=== PATIENT | female | born 1940 | race Caucasian/White ===

== ENCOUNTER → 2017-03-09 | Outpatient (CLI) | payer MEDICARE ==
[2017-03-09 11:35] LABS: BASO % 0.3 % (0.0-1.0); EOS # 0.1 10*3/uL (0.0-0.4); EOS % 2.2 % (1.0-4.0); HEMATOCRIT 34.3 % (37.0-47.0); HEMOGLOBIN 11.2 g/dl (12.0-16.0); LYMPH # 0.5 10*3/uL (1.3-4.4); LYMPH % 7.5 % (27.0-41.0); MEAN CELL VOLUME 92.5 fl (81.0-99.0); MEAN CORPUSCULAR HGB 30.2 pg (27.0-31.0); MEAN CORPUSCULAR HGB CONC 32.7 g/dl (33.0-37.0); MEAN PLATELET VOLUME 9.4 fl (9.6-12.3); MONO # 0.7 10*3/uL (0.1-1.0); NEUT % 78.7 % (47.0-73.0); PLATELET COUNT AUTOMATED 225 10*3/uL (130-400); RED BLOOD COUNT 3.71 10*6/uL (4.10-5.10); RED CELL DISTRI WIDTH 12.8 % (0-14.5); WHITE BLOOD COUNT 6.4 10*3/uL (4.8-10.8)
[2017-03-09 12:09] LABS: ALBUMIN 2.7 gm/dl (3.1-4.5); ALKALINE PHOSPHATASE 82 U/L (45-117); BILIRUBIN, TOTAL 0.2 mg/dl (0.2-1.0); BUN 16 mg/dl (7-24); CARBON DIOXIDE 25 mmol/L (21-32); CHLORIDE 104 mmol/L (98-107); EST GLOM FILT AFRICAN AMERICAN > 60 ml/min; GLUCOSE 218 mg/dL (65-99); MAGNESIUM 1.6 mg/dL (1.5-2.1); PHOSPHOROUS 3.4 mg/dL (2.5-4.9); POTASSIUM 4.3 mmol/L (3.5-5.1); SGOT/AST 11 IU/L (3-35); SGPT/ALT 10 U/L (12-78); SODIUM 138 mmol/L (136-145); TOTAL PROTEIN 6.7 gm/dL (6.4-8.2)
== END | disposition home or self-care (01) ==
LOC: LAB 03:56 → EDSTATUS 11:30 → SDC 11:30
PROVIDERS: Internal Medicine Hematology & Oncology
DX: Z45.2 Encounter for adjustment and management of vascular access device (principal); C67.9 Malignant neoplasm of bladder, unspecified

== ENCOUNTER → 2017-03-15 | Outpatient (CLI) | payer MEDICARE ==
[2017-03-15 12:32] LABS: HEMATOCRIT 35.9 % (37.0-47.0); HEMOGLOBIN 11.6 g/dl (12.0-16.0); MEAN CELL VOLUME 91.6 fl (81.0-99.0); MEAN CORPUSCULAR HGB 29.6 pg (27.0-31.0); MEAN CORPUSCULAR HGB CONC 32.3 g/dl (33.0-37.0); PLATELET COUNT AUTOMATED 175 10*3/uL (130-400); RED BLOOD COUNT 3.92 10*6/uL (4.10-5.10); RED CELL DISTRI WIDTH 12.8 % (0-14.5); WHITE BLOOD COUNT 6.5 10*3/uL (4.8-10.8)
[2017-03-15 13:02] LABS: BASOPHIL # 0.1 10*3/uL (0-0.1); BASOPHILS 2 % (0-1); LYMPHOCYTE # 0.3 10*3/uL (1.3-4.4); MONOCYTE # 0.6 10*3/uL (0.1-1.0); NEUTROPHIL # 5.5 10*3/uL (2.3-7.9); NEUTROPHILS 84 % (47-73); PLATELET SUFFICIENCY NORMAL (NORMAL); TOTAL CELLS COUNTED 100 #CELLS
[2017-03-15 13:11] LABS: ALBUMIN 2.8 gm/dl (3.1-4.5); BUN 15 mg/dl (7-24); CARBON DIOXIDE 25 mmol/L (21-32); CHLORIDE 104 mmol/L (98-107); GLUCOSE 126 mg/dL (65-99); POTASSIUM 4.2 mmol/L (3.5-5.1); SODIUM 138 mmol/L (136-145)
[2017-03-15 13:16] LABS: ALKALINE PHOSPHATASE 74 U/L (45-117); BILIRUBIN, TOTAL 0.2 mg/dl (0.2-1.0); EST GLOM FILT AFRICAN AMERICAN > 60 ml/min; PHOSPHOROUS 3.3 mg/dL (2.5-4.9); SGOT/AST 9 IU/L (3-35); SGPT/ALT 9 U/L (12-78); TOTAL PROTEIN 6.7 gm/dL (6.4-8.2)
== END | disposition home or self-care (01) ==
LOC: LAB 02:49 → EDSTATUS 11:30 → LAB 11:30 → SDC 11:30
PROVIDERS: Internal Medicine Hematology & Oncology
DX: C67.9 Malignant neoplasm of bladder, unspecified (principal)

== ENCOUNTER → 2017-03-23 | Outpatient (CLI) | payer MEDICARE ==
[2017-03-23 12:40] LABS: BASO % 0.3 % (0.0-1.0); EOS # 0.1 10*3/uL (0.0-0.4); EOS % 1.6 % (1.0-4.0); HEMATOCRIT 36.6 % (37.0-47.0); HEMOGLOBIN 11.7 g/dl (12.0-16.0); LYMPH # 0.6 10*3/uL (1.3-4.4); LYMPH % 8.1 % (27.0-41.0); MEAN CELL VOLUME 90.8 fl (81.0-99.0); MONO # 0.8 10*3/uL (0.1-1.0); MONO % 10.1 % (3.0-9.0); NEUT # 6.1 10*3/uL (2.3-7.9); NEUT % 79.5 % (47.0-73.0); PLATELET COUNT AUTOMATED 218 10*3/uL (130-400); RED BLOOD COUNT 4.03 10*6/uL (4.10-5.10); WHITE BLOOD COUNT 7.6 10*3/uL (4.8-10.8)
[2017-03-23 13:19] LABS: ALBUMIN 2.8 gm/dl (3.1-4.5); BUN 12 mg/dl (7-24); CARBON DIOXIDE 25 mmol/L (21-32); CHLORIDE 104 mmol/L (98-107); EST GLOM FILT AFRICAN AMERICAN > 60 ml/min; GLUCOSE 117 mg/dL (65-99); MAGNESIUM 1.9 mg/dL (1.5-2.1); PHOSPHOROUS 3.9 mg/dL (2.5-4.9); POTASSIUM 4.5 mmol/L (3.5-5.1); SGOT/AST 10 IU/L (3-35); SGPT/ALT 9 U/L (12-78); SODIUM 138 mmol/L (136-145)
[2017-03-23 13:20] LABS: ALKALINE PHOSPHATASE 74 U/L (45-117); BILIRUBIN, TOTAL 0.2 mg/dl (0.2-1.0); TOTAL PROTEIN 6.9 gm/dL (6.4-8.2)
== END | disposition home or self-care (01) ==
LOC: MEDIPORT 03-22 10:30 → LAB 08:34 → MEDIPORT 11:30
PROVIDERS: Internal Medicine Hematology & Oncology
DX: C67.9 Malignant neoplasm of bladder, unspecified (principal); Z79.899 Other long term (current) drug therapy

== ENCOUNTER → 2017-03-29 | Outpatient (CLI) | payer MEDICARE ==
[2017-03-29 11:27] LABS: BASO % 0.4 % (0.0-1.0); EOS # 0.1 10*3/uL (0.0-0.4); EOS % 1.6 % (1.0-4.0); HEMOGLOBIN 11.6 g/dl (12.0-16.0); LYMPH # 0.7 10*3/uL (1.3-4.4); LYMPH % 9.6 % (27.0-41.0); MEAN CELL VOLUME 90.5 fl (81.0-99.0); MEAN CORPUSCULAR HGB 29.1 pg (27.0-31.0); MEAN CORPUSCULAR HGB CONC 32.2 g/dl (33.0-37.0); MEAN PLATELET VOLUME 9.4 fl (9.6-12.3); MONO # 0.6 10*3/uL (0.1-1.0); MONO % 9.3 % (3.0-9.0); NEUT # 5.4 10*3/uL (2.3-7.9); NEUT % 78.7 % (47.0-73.0); PLATELET COUNT AUTOMATED 212 10*3/uL (130-400); RED BLOOD COUNT 3.98 10*6/uL (4.10-5.10); RED CELL DISTRI WIDTH 12.9 % (0-14.5); WHITE BLOOD COUNT 6.9 10*3/uL (4.8-10.8)
[2017-03-29 11:37] LABS: ALBUMIN 2.9 gm/dl (3.1-4.5); ALKALINE PHOSPHATASE 71 U/L (45-117); BILIRUBIN, TOTAL 0.2 mg/dl (0.2-1.0); BUN 16 mg/dl (7-24); CARBON DIOXIDE 24 mmol/L (21-32); CHLORIDE 104 mmol/L (98-107); EST GLOM FILT AFRICAN AMERICAN > 60 ml/min; GLUCOSE 152 mg/dL (65-99); MAGNESIUM 1.4 mg/dL (1.5-2.1); PHOSPHOROUS 3.4 mg/dL (2.5-4.9); POTASSIUM 4.4 mmol/L (3.5-5.1); SGOT/AST 12 IU/L (3-35); SGPT/ALT 11 U/L (12-78); SODIUM 137 mmol/L (136-145); TOTAL PROTEIN 6.7 gm/dL (6.4-8.2)
== END | disposition home or self-care (01) ==
LOC: LAB 02:08 → MEDIPORT 10:30 → LAB 11:30
PROVIDERS: Internal Medicine Hematology & Oncology
DX: C67.9 Malignant neoplasm of bladder, unspecified (principal); Z79.899 Other long term (current) drug therapy

== ENCOUNTER → 2017-04-05 | Outpatient (CLI) | payer MEDICARE ==
[2017-04-05 13:10] LABS: BASO % 0.4 % (0.0-1.0); EOS # 0.2 10*3/uL (0.0-0.4); EOS % 2.2 % (1.0-4.0); HEMATOCRIT 35.8 % (37.0-47.0); HEMOGLOBIN 11.7 g/dl (12.0-16.0); IG # 0.1 10*3/uL (0.0-0.1); LYMPH # 0.7 10*3/uL (1.3-4.4); LYMPH % 10.6 % (27.0-41.0); MEAN CELL VOLUME 90.9 fl (81.0-99.0); MEAN CORPUSCULAR HGB 29.7 pg (27.0-31.0); MEAN CORPUSCULAR HGB CONC 32.7 g/dl (33.0-37.0); MEAN PLATELET VOLUME 9.9 fl (9.6-12.3); MONO # 0.6 10*3/uL (0.1-1.0); MONO % 9.1 % (3.0-9.0); NEUT # 5.1 10*3/uL (2.3-7.9); PLATELET COUNT AUTOMATED 255 10*3/uL (130-400); RED BLOOD COUNT 3.94 10*6/uL (4.10-5.10); RED CELL DISTRI WIDTH 13.2 % (0-14.5); WHITE BLOOD COUNT 6.7 10*3/uL (4.8-10.8)
[2017-04-05 13:23] LABS: ALBUMIN 2.8 gm/dl (3.1-4.5); ALKALINE PHOSPHATASE 81 U/L (45-117); BILIRUBIN, TOTAL 0.2 mg/dl (0.2-1.0); BUN 14 mg/dl (7-24); CARBON DIOXIDE 26 mmol/L (21-32); CHLORIDE 104 mmol/L (98-107); EST GLOM FILT AFRICAN AMERICAN > 60 ml/min; GLUCOSE 232 mg/dL (65-99); MAGNESIUM 1.6 mg/dL (1.5-2.1); PHOSPHOROUS 3.6 mg/dL (2.5-4.9); POTASSIUM 4.1 mmol/L (3.5-5.1); SGOT/AST 12 IU/L (3-35); SGPT/ALT 12 U/L (12-78); SODIUM 137 mmol/L (136-145); TOTAL PROTEIN 6.7 gm/dL (6.4-8.2)
== END | disposition home or self-care (01) ==
LOC: MEDIPORT 09:00
PROVIDERS: Internal Medicine Hematology & Oncology
DX: Z51.11 Encounter for antineoplastic chemotherapy (principal); C67.9 Malignant neoplasm of bladder, unspecified; R53.82 Chronic fatigue, unspecified; D52.9 Folate deficiency anemia, unspecified; Z79.899 Other long term (current) drug therapy; R79.89 Other specified abnormal findings of blood chemistry

== ENCOUNTER → 2017-04-12 | Outpatient (CLI) | payer MEDICARE ==
[2017-04-12 11:27] LABS: BASO % 0.4 % (0.0-1.0); EOS # 0.2 10*3/uL (0.0-0.4); HEMATOCRIT 37.1 % (37.0-47.0); LYMPH # 0.7 10*3/uL (1.3-4.4); LYMPH % 9.5 % (27.0-41.0); MEAN CELL VOLUME 88.8 fl (81.0-99.0); MEAN CORPUSCULAR HGB 28.7 pg (27.0-31.0); MEAN CORPUSCULAR HGB CONC 32.3 g/dl (33.0-37.0); MEAN PLATELET VOLUME 9.6 fl (9.6-12.3); MONO # 0.8 10*3/uL (0.1-1.0); NEUT % 77.6 % (47.0-73.0); PLATELET COUNT AUTOMATED 226 10*3/uL (130-400); RED BLOOD COUNT 4.18 10*6/uL (4.10-5.10); RED CELL DISTRI WIDTH 13.2 % (0-14.5); WHITE BLOOD COUNT 7.7 10*3/uL (4.8-10.8)
[2017-04-12 11:50] LABS: ALBUMIN 3.2 gm/dl (3.1-4.5); ALKALINE PHOSPHATASE 82 U/L (45-117); BILIRUBIN, TOTAL 0.2 mg/dl (0.2-1.0); BUN 22 mg/dl (7-24); CARBON DIOXIDE 28 mmol/L (21-32); CHLORIDE 102 mmol/L (98-107); EST GLOM FILT AFRICAN AMERICAN > 60 ml/min; GLUCOSE 179 mg/dL (65-99); MAGNESIUM 1.7 mg/dL (1.5-2.1); PHOSPHOROUS 3.9 mg/dL (2.5-4.9); POTASSIUM 4.3 mmol/L (3.5-5.1); SGOT/AST 7 IU/L (3-35); SGPT/ALT 12 U/L (12-78); SODIUM 136 mmol/L (136-145); TOTAL PROTEIN 7.3 gm/dL (6.4-8.2)
== END | disposition home or self-care (01) ==
LOC: MEDIPORT 03:05
PROVIDERS: Internal Medicine Hematology & Oncology
DX: D52.9 Folate deficiency anemia, unspecified (principal); R53.82 Chronic fatigue, unspecified; Z79.899 Other long term (current) drug therapy

== ENCOUNTER → 2017-04-19 | Outpatient (CLI) | payer MEDICARE ==
[2017-04-19 11:16] LABS: BASO % 0.7 % (0.0-1.0); EOS # 0.3 10*3/uL (0.0-0.4); EOS % 4.6 % (1.0-4.0); HEMATOCRIT 35.5 % (37.0-47.0); HEMOGLOBIN 11.4 g/dl (12.0-16.0); LYMPH # 0.5 10*3/uL (1.3-4.4); MEAN CELL VOLUME 89.4 fl (81.0-99.0); MEAN CORPUSCULAR HGB 28.7 pg (27.0-31.0); MEAN CORPUSCULAR HGB CONC 32.1 g/dl (33.0-37.0); MEAN PLATELET VOLUME 9.8 fl (9.6-12.3); MONO # 0.6 10*3/uL (0.1-1.0); MONO % 10.2 % (3.0-9.0); NEUT # 4.4 10*3/uL (2.3-7.9); PLATELET COUNT AUTOMATED 262 10*3/uL (130-400); RED BLOOD COUNT 3.97 10*6/uL (4.10-5.10); RED CELL DISTRI WIDTH 13.3 % (0-14.5); WHITE BLOOD COUNT 5.9 10*3/uL (4.8-10.8)
[2017-04-19 11:58] LABS: ALBUMIN 2.9 gm/dl (3.1-4.5); ALKALINE PHOSPHATASE 89 U/L (45-117); BILIRUBIN, TOTAL 0.3 mg/dl (0.2-1.0); BUN 16 mg/dl (7-24); CARBON DIOXIDE 26 mmol/L (21-32); CHLORIDE 110 mmol/L (98-107); EST GLOM FILT AFRICAN AMERICAN > 60 ml/min; GLUCOSE 293 mg/dL (65-99); MAGNESIUM 1.9 mg/dL (1.5-2.1); PHOSPHOROUS 3.8 mg/dL (2.5-4.9); POTASSIUM 4.2 mmol/L (3.5-5.1); SGOT/AST 10 IU/L (3-35); SGPT/ALT 12 U/L (12-78); SODIUM 141 mmol/L (136-145)
== END | disposition home or self-care (01) ==
LOC: MEDIPORT 04:41
PROVIDERS: Internal Medicine Hematology & Oncology
DX: Z51.11 Encounter for antineoplastic chemotherapy (principal); C67.9 Malignant neoplasm of bladder, unspecified; D52.9 Folate deficiency anemia, unspecified; R53.82 Chronic fatigue, unspecified; Z79.899 Other long term (current) drug therapy

== ENCOUNTER → 2017-04-26 | Outpatient (CLI) | payer MEDICARE ==
[2017-04-26 11:43] LABS: BASO % 0.4 % (0.0-1.0); EOS # 0.2 10*3/uL (0.0-0.4); EOS % 2.5 % (1.0-4.0); HEMATOCRIT 34.9 % (37.0-47.0); HEMOGLOBIN 11.2 g/dl (12.0-16.0); LYMPH # 0.6 10*3/uL (1.3-4.4); LYMPH % 9.1 % (27.0-41.0); MEAN CELL VOLUME 89.5 fl (81.0-99.0); MEAN CORPUSCULAR HGB 28.7 pg (27.0-31.0); MEAN CORPUSCULAR HGB CONC 32.1 g/dl (33.0-37.0); MEAN PLATELET VOLUME 9.8 fl (9.6-12.3); MONO # 0.6 10*3/uL (0.1-1.0); MONO % 8.8 % (3.0-9.0); NEUT # 5.6 10*3/uL (2.3-7.9); NEUT % 78.6 % (47.0-73.0); PLATELET COUNT AUTOMATED 257 10*3/uL (130-400); RED CELL DISTRI WIDTH 13.5 % (0-14.5); WHITE BLOOD COUNT 7.1 10*3/uL (4.8-10.8)
[2017-04-26 12:14] LABS: ALBUMIN 2.9 gm/dl (3.1-4.5); BILIRUBIN, TOTAL 0.2 mg/dl (0.2-1.0); MAGNESIUM 1.6 mg/dL (1.5-2.1); PHOSPHOROUS 4.1 mg/dL (2.5-4.9); POTASSIUM 4.4 mmol/L (3.5-5.1); TOTAL PROTEIN 6.8 gm/dL (6.4-8.2)
== END | disposition home or self-care (01) ==
LOC: MEDIPORT 00:53
PROVIDERS: Internal Medicine Hematology & Oncology
DX: Z51.11 Encounter for antineoplastic chemotherapy (principal); C67.9 Malignant neoplasm of bladder, unspecified; D52.9 Folate deficiency anemia, unspecified; R53.82 Chronic fatigue, unspecified; Z79.899 Other long term (current) drug therapy

== ENCOUNTER → 2017-05-04 | Outpatient (CLI) | payer MEDICARE ==
[2017-05-04 11:28] LABS: BASO % 0.5 % (0.0-1.0); EOS # 0.2 10*3/uL (0.0-0.4); EOS % 3.9 % (1.0-4.0); HEMATOCRIT 36.2 % (37.0-47.0); HEMOGLOBIN 11.3 g/dl (12.0-16.0); LYMPH # 0.8 10*3/uL (1.3-4.4); LYMPH % 12.6 % (27.0-41.0); MEAN CELL VOLUME 89.4 fl (81.0-99.0); MEAN CORPUSCULAR HGB 27.9 pg (27.0-31.0); MEAN CORPUSCULAR HGB CONC 31.2 g/dl (33.0-37.0); MEAN PLATELET VOLUME 9.7 fl (9.6-12.3); MONO # 0.6 10*3/uL (0.1-1.0); MONO % 10.4 % (3.0-9.0); NEUT # 4.4 10*3/uL (2.3-7.9); NEUT % 71.8 % (47.0-73.0); PLATELET COUNT AUTOMATED 244 10*3/uL (130-400); RED BLOOD COUNT 4.05 10*6/uL (4.10-5.10); RED CELL DISTRI WIDTH 13.7 % (0-14.5); WHITE BLOOD COUNT 6.2 10*3/uL (4.8-10.8)
[2017-05-04 11:56] LABS: ALBUMIN 3.1 gm/dl (3.1-4.5); BUN 15 mg/dl (7-24); CHLORIDE 104 mmol/L (98-107); CREATININE 0.84 mg/dL (0.55-1.02); MAGNESIUM 1.8 mg/dL (1.5-2.1); PHOSPHOROUS 3.7 mg/dL (2.5-4.9); POTASSIUM 4.6 mmol/L (3.5-5.1); SGOT/AST 15 IU/L (3-35); SODIUM 138 mmol/L (136-145)
[2017-05-04 12:04] LABS: ALKALINE PHOSPHATASE 81 U/L (45-117); FREE T4 1.19 ng/dl (0.76-1.46); SGPT/ALT 10 U/L (12-78); TOTAL PROTEIN 7.1 gm/dL (6.4-8.2)
== END | disposition home or self-care (01) ==
LOC: MEDIPORT 05-03 03:36
PROVIDERS: Internal Medicine Hematology & Oncology
DX: Z51.11 Encounter for antineoplastic chemotherapy (principal); C67.9 Malignant neoplasm of bladder, unspecified; D52.9 Folate deficiency anemia, unspecified; R53.82 Chronic fatigue, unspecified; Z79.899 Other long term (current) drug therapy

== ENCOUNTER → 2017-05-11 | Outpatient (CLI) | payer MEDICARE ==
--- NOTE | 2017-05-11 11:17 | NUR ---
CLIENT AMBULATORY TO TREATMENT AREA FOR BLOOD VIA PORT AND PORT FLUSHED. PORT WAS ACCESSED USING ASEPTIC TECHNIQUE. BRISK BLOOD RETURN NOTED. APPROPRIATE AMOUNT OF BLOOD WAS WASTED THEN SPECIMEN WAS OBTAINED AND SENT TO LAB. PORT WAS THEN FLUSHED WITH SALINE FOLLOWED BY HEPARIN. NEEDLE WITHDRAWN. NO BLEEDING SEEN. BANDAID TO SITE. CLIENT THEN AMBULATED FROM TREATMENT AREA IN STABLE CONDITION.
[2017-05-11 11:20] LABS: BASO % 0.4 % (0.0-1.0); EOS # 0.2 10*3/uL (0.0-0.4); EOS % 3.1 % (1.0-4.0); HEMATOCRIT 35.7 % (37.0-47.0); HEMOGLOBIN 11.4 g/dl (12.0-16.0); LYMPH # 0.7 10*3/uL (1.3-4.4); LYMPH % 12.3 % (27.0-41.0); MEAN CELL VOLUME 89.9 fl (81.0-99.0); MEAN CORPUSCULAR HGB 28.7 pg (27.0-31.0); MEAN CORPUSCULAR HGB CONC 31.9 g/dl (33.0-37.0); MEAN PLATELET VOLUME 9.7 fl (9.6-12.3); MONO # 0.5 10*3/uL (0.1-1.0); MONO % 9.5 % (3.0-9.0); NEUT # 4.1 10*3/uL (2.3-7.9); NEUT % 74.3 % (47.0-73.0); PLATELET COUNT AUTOMATED 229 10*3/uL (130-400); RED BLOOD COUNT 3.97 10*6/uL (4.10-5.10); RED CELL DISTRI WIDTH 13.8 % (0-14.5); WHITE BLOOD COUNT 5.5 10*3/uL (4.8-10.8)
[2017-05-11 11:38] LABS: ALBUMIN 3.1 gm/dl (3.1-4.5); CREATININE 1.12 mg/dL (0.55-1.02); MAGNESIUM 1.8 mg/dL (1.5-2.1); PHOSPHOROUS 3.9 mg/dL (2.5-4.9); POTASSIUM 4.2 mmol/L (3.5-5.1); TOTAL PROTEIN 7.2 gm/dL (6.4-8.2)
== END | disposition home or self-care (01) ==
LOC: MEDIPORT 05-10 11:00 → EDSTATUS 05-10 11:00 → SDC 05-10 11:00 → MEDIPORT 10:52
PROVIDERS: Internal Medicine Hematology & Oncology
DX: Z45.2 Encounter for adjustment and management of vascular access device (principal)

== ENCOUNTER → 2017-05-17 | Outpatient (CLI) | payer MEDICARE ==
[2017-05-17 10:42] VITALS: BP 141/67
--- NOTE | 2017-05-17 10:58 | NUR ---
PT.'S MEDIPORT ACCESSED PER POLICY, LABS DRAWN PER DR. DALY MEDIPORT FLUSHED PER POLICY PT. TOLERATED WELL.
[2017-05-17 11:15] LABS: BASO % 0.4 % (0.0-1.0); EOS # 0.2 10*3/uL (0.0-0.4); EOS % 2.7 % (1.0-4.0); HEMATOCRIT 36.5 % (37.0-47.0); HEMOGLOBIN 11.6 g/dl (12.0-16.0); LYMPH # 0.6 10*3/uL (1.3-4.4); LYMPH % 9.3 % (27.0-41.0); MEAN CELL VOLUME 88.8 fl (81.0-99.0); MEAN CORPUSCULAR HGB 28.2 pg (27.0-31.0); MEAN CORPUSCULAR HGB CONC 31.8 g/dl (33.0-37.0); MEAN PLATELET VOLUME 9.5 fl (9.6-12.3); MONO # 0.6 10*3/uL (0.1-1.0); MONO % 9.1 % (3.0-9.0); NEUT # 5.2 10*3/uL (2.3-7.9); NEUT % 78.1 % (47.0-73.0); PLATELET COUNT AUTOMATED 259 10*3/uL (130-400); RED BLOOD COUNT 4.11 10*6/uL (4.10-5.10); WHITE BLOOD COUNT 6.7 10*3/uL (4.8-10.8)
[2017-05-17 11:45] LABS: ALBUMIN 3.2 gm/dl (3.1-4.5); ALKALINE PHOSPHATASE 82 U/L (45-117); BUN 18 mg/dl (7-24); CHLORIDE 103 mmol/L (98-107); CREATININE 0.97 mg/dL (0.55-1.02); MAGNESIUM 1.9 mg/dL (1.5-2.1); PHOSPHOROUS 3.8 mg/dL (2.5-4.9); POTASSIUM 4.2 mmol/L (3.5-5.1); SGOT/AST 9 IU/L (3-35); SGPT/ALT 12 U/L (12-78); SODIUM 137 mmol/L (136-145); TOTAL PROTEIN 7.4 gm/dL (6.4-8.2)
== END | disposition home or self-care (01) ==
LOC: SDC 05-16 11:00 → EDSTATUS 11:00 → SDC 11:00 → MEDIPORT 11:08
PROVIDERS: Internal Medicine Hematology & Oncology
DX: Z45.2 Encounter for adjustment and management of vascular access device (principal); C67.9 Malignant neoplasm of bladder, unspecified; Z79.899 Other long term (current) drug therapy

== ENCOUNTER → 2017-05-24 | Outpatient (CLI) | payer MEDICARE ==
--- NOTE | 2017-05-24 10:50 | NUR ---
PT HERE FOR SCHEDULED LAB DRAW FROM MEDIPORT. PORT ACCESSED WITH NONCORING NEEDLE AFTER PREP PER P&P. PROMPT BLOOD RETURN NOTED. 20CC DISCHARGED. LABS COMPLETE AND SENT TO MAIN LAB ORDERED. MEDIPORT FLUSHED PER POLICY DRESSING APPLIED. PT TOLERATED WELL. NO BLEEDING OR HEMATOMA NOTED. MICH GUERRERO RN
[2017-05-24 11:02] LABS: BASO % 0.3 % (0.0-1.0); EOS # 0.2 10*3/uL (0.0-0.4); EOS % 2.4 % (1.0-4.0); HEMATOCRIT 36.2 % (37.0-47.0); HEMOGLOBIN 11.6 g/dl (12.0-16.0); LYMPH # 0.6 10*3/uL (1.3-4.4); LYMPH % 9.9 % (27.0-41.0); MEAN CELL VOLUME 87.7 fl (81.0-99.0); MEAN CORPUSCULAR HGB 28.1 pg (27.0-31.0); MEAN PLATELET VOLUME 9.2 fl (9.6-12.3); MONO # 0.6 10*3/uL (0.1-1.0); NEUT # 4.9 10*3/uL (2.3-7.9); NEUT % 77.8 % (47.0-73.0); PLATELET COUNT AUTOMATED 226 10*3/uL (130-400); RED BLOOD COUNT 4.13 10*6/uL (4.10-5.10); RED CELL DISTRI WIDTH 14.1 % (0-14.5); WHITE BLOOD COUNT 6.2 10*3/uL (4.8-10.8)
[2017-05-24 11:37] LABS: ALBUMIN 3.2 gm/dl (3.1-4.5); ALKALINE PHOSPHATASE 78 U/L (45-117); BUN 18 mg/dl (7-24); CHLORIDE 105 mmol/L (98-107); CHOLESTEROL 175 mg/dL (<200); CREATININE 0.84 mg/dL (0.55-1.02); HDL CHOLESTEROL 59 mg/dl (40-60); LDL CHOLESTEROL 70 mg/dL (9-159); MAGNESIUM 1.8 mg/dL (1.5-2.1); POTASSIUM 4.4 mmol/L (3.5-5.1); SGOT/AST 12 IU/L (3-35); SGPT/ALT 10 U/L (12-78); SODIUM 140 mmol/L (136-145); TOTAL PROTEIN 7.2 gm/dL (6.4-8.2); TRIGLYCERIDES 230 mg/dl (<150); VLDL CHOLESTEROL 46 mg/dL (6-40)
== END | disposition home or self-care (01) ==
LOC: MEDIPORT 07:56 → EDSTATUS 11:00 → SDC 11:00 → MEDIPORT 11:00
PROVIDERS: Internal Medicine Hematology & Oncology
DX: Z45.2 Encounter for adjustment and management of vascular access device (principal); C67.9 Malignant neoplasm of bladder, unspecified; Z79.899 Other long term (current) drug therapy

== ENCOUNTER → 2017-05-31 | Outpatient (CLI) | payer MEDICARE ==
--- NOTE | 2017-05-31 10:46 | NUR ---
CLIENT AMBULATORY TO TREATMENT AREA FOR BLOOD DRAW VIA PORT AND PORT FLUSH. PORT WAS PREPPED X 2 AND ACCESSED USING ASEPTIC TECHNIQUE. BRISK BLOOD RETURN WAS NOTED. APPROPRIATE AMOUNT OF BLOOD WAS WASTED THEN SPECIMEN OBTAINED AND SENT TO LAB. PORT WAS THEN FLUSHED WITH SALINE FOLLOWED BY HEPARIN. NEEDLE WITHDRAWN AND BANDAID APPLIED TO SITE. NO BLEEDING SEEN. CLIENT THEN AMBULATED FROM TREATMENT AREA IN STABLE CONDITION
[2017-05-31 10:54] LABS: BASO % 0.3 % (0.0-1.0); EOS # 0.2 10*3/uL (0.0-0.4); EOS % 2.9 % (1.0-4.0); HEMOGLOBIN 11.2 g/dl (12.0-16.0); LYMPH # 0.6 10*3/uL (1.3-4.4); LYMPH % 10.2 % (27.0-41.0); MEAN CELL VOLUME 88.2 fl (81.0-99.0); MEAN CORPUSCULAR HGB 28.2 pg (27.0-31.0); MEAN PLATELET VOLUME 9.6 fl (9.6-12.3); MONO # 0.6 10*3/uL (0.1-1.0); MONO % 9.4 % (3.0-9.0); NEUT # 4.7 10*3/uL (2.3-7.9); NEUT % 76.7 % (47.0-73.0); PLATELET COUNT AUTOMATED 249 10*3/uL (130-400); RED BLOOD COUNT 3.97 10*6/uL (4.10-5.10); RED CELL DISTRI WIDTH 14.2 % (0-14.5); WHITE BLOOD COUNT 6.2 10*3/uL (4.8-10.8)
[2017-05-31 11:25] LABS: ALBUMIN 3.1 gm/dl (3.1-4.5); ALKALINE PHOSPHATASE 85 U/L (45-117); BUN 18 mg/dl (7-24); CHLORIDE 105 mmol/L (98-107); CREATININE 0.99 mg/dL (0.55-1.02); MAGNESIUM 2.3 mg/dL (1.5-2.1); POTASSIUM 4.3 mmol/L (3.5-5.1); SGOT/AST 12 IU/L (3-35); SGPT/ALT 11 U/L (12-78); SODIUM 139 mmol/L (136-145)
== END | disposition home or self-care (01) ==
LOC: MEDIPORT 01:01 → SDC 11:00 → MEDIPORT 11:00 → LAB 11:00 → EDSTATUS 11:00
PROVIDERS: Internal Medicine Hematology & Oncology
DX: Z45.2 Encounter for adjustment and management of vascular access device (principal); C67.9 Malignant neoplasm of bladder, unspecified; Z79.899 Other long term (current) drug therapy

== ENCOUNTER → 2017-06-07 | Outpatient (CLI) | payer MEDICARE ==
--- NOTE | 2017-06-07 10:50 | NUR ---
CLIENT AMBULATORY TO TREATMENT AREA FOR BLOOD DRAW VIA PORT THEN PORT FLUSH. PORT WAS PREPPED AND ACCESSED USING ASEPTIC TECHNIQUE. BRISK BLOOD RETURN WAS NOTED. APPROPRIATE AMOUNT OF BLOOD WAS WASTED THEN SPECIMEN OBTAINED AND SENT TO LAB. PORT WAS THEN FLUSHED WITH SALINE FOLLOWED BY HEPARIN. NEEDLE WAS WITHDRAWN. BANDAID TO SITE. CLIENT THEN AMBULATED FROM TREATMENT AREA IN STABLE CONDITION
[2017-06-07 11:05] LABS: BASO % 0.5 % (0.0-1.0); EOS # 0.2 10*3/uL (0.0-0.4); EOS % 2.3 % (1.0-4.0); HEMATOCRIT 36.1 % (37.0-47.0); HEMOGLOBIN 11.5 g/dl (12.0-16.0); LYMPH # 0.6 10*3/uL (1.3-4.4); LYMPH % 9.4 % (27.0-41.0); MEAN CELL VOLUME 87.2 fl (81.0-99.0); MEAN CORPUSCULAR HGB 27.8 pg (27.0-31.0); MEAN CORPUSCULAR HGB CONC 31.9 g/dl (33.0-37.0); MEAN PLATELET VOLUME 9.5 fl (9.6-12.3); MONO # 0.6 10*3/uL (0.1-1.0); MONO % 9.4 % (3.0-9.0); NEUT # 5.2 10*3/uL (2.3-7.9); NEUT % 77.9 % (47.0-73.0); PLATELET COUNT AUTOMATED 250 10*3/uL (130-400); RED BLOOD COUNT 4.14 10*6/uL (4.10-5.10); RED CELL DISTRI WIDTH 14.1 % (0-14.5); WHITE BLOOD COUNT 6.6 10*3/uL (4.8-10.8)
[2017-06-07 11:43] LABS: ALBUMIN 3.1 gm/dl (3.1-4.5); ALKALINE PHOSPHATASE 90 U/L (45-117); BUN 20 mg/dl (7-24); CHLORIDE 102 mmol/L (98-107); CREATININE 1.05 mg/dL (0.55-1.02); MAGNESIUM 1.7 mg/dL (1.5-2.1); POTASSIUM 4.1 mmol/L (3.5-5.1); SGOT/AST 11 IU/L (3-35); SGPT/ALT 11 U/L (12-78); SODIUM 138 mmol/L (136-145)
== END | disposition home or self-care (01) ==
LOC: MEDIPORT 02:05 → SDC 11:00 → EDSTATUS 11:00
PROVIDERS: Internal Medicine Hematology & Oncology
DX: Z45.2 Encounter for adjustment and management of vascular access device (principal); C67.9 Malignant neoplasm of bladder, unspecified; Z79.899 Other long term (current) drug therapy

== ENCOUNTER → 2017-06-14 | Outpatient (CLI) | payer MEDICARE ==
[2017-06-14 10:53] LABS: BASO % 0.5 % (0.0-1.0); EOS # 0.2 10*3/uL (0.0-0.4); EOS % 2.5 % (1.0-4.0); HEMATOCRIT 35.1 % (37.0-47.0); HEMOGLOBIN 11.2 g/dl (12.0-16.0); LYMPH # 0.6 10*3/uL (1.3-4.4); MEAN CELL VOLUME 87.5 fl (81.0-99.0); MEAN CORPUSCULAR HGB 27.9 pg (27.0-31.0); MEAN CORPUSCULAR HGB CONC 31.9 g/dl (33.0-37.0); MEAN PLATELET VOLUME 9.7 fl (9.6-12.3); MONO # 0.7 10*3/uL (0.1-1.0); MONO % 10.8 % (3.0-9.0); NEUT # 4.8 10*3/uL (2.3-7.9); NEUT % 75.7 % (47.0-73.0); PLATELET COUNT AUTOMATED 236 10*3/uL (130-400); RED BLOOD COUNT 4.01 10*6/uL (4.10-5.10); RED CELL DISTRI WIDTH 14.1 % (0-14.5); WHITE BLOOD COUNT 6.3 10*3/uL (4.8-10.8)
[2017-06-14 11:30] LABS: ALBUMIN 3.1 gm/dl (3.1-4.5); ALKALINE PHOSPHATASE 91 U/L (45-117); BUN 16 mg/dl (7-24); CHLORIDE 101 mmol/L (98-107); CREATININE 1.05 mg/dL (0.55-1.02); MAGNESIUM 1.8 mg/dL (1.5-2.1); PHOSPHOROUS 4.2 mg/dL (2.5-4.9); POTASSIUM 4.4 mmol/L (3.5-5.1); SGOT/AST 12 IU/L (3-35); SGPT/ALT 11 U/L (12-78); SODIUM 137 mmol/L (136-145); TOTAL PROTEIN 7.2 gm/dL (6.4-8.2)
== END | disposition home or self-care (01) ==
LOC: MEDIPORT 04:54 → EDSTATUS 11:00 → MEDIPORT 11:00 → SDC 11:00
PROVIDERS: Internal Medicine Hematology & Oncology
DX: Z45.2 Encounter for adjustment and management of vascular access device (principal); C67.9 Malignant neoplasm of bladder, unspecified; Z79.899 Other long term (current) drug therapy

== ENCOUNTER → 2017-06-21 | Outpatient (CLI) | payer MEDICARE ==
--- NOTE | 2017-06-21 10:52 | NUR ---
CLIENT AMBULATORY TO TREATMENT AREA FOR BLOOD DRAW VIA PORT THEN PORT FLUSH. PORT WAS ACCESSED USING ASEPTIC TECHNIQUE. BRISK BLOOD RETURN WAS NOTED. APPROPRIATE AMOUNT OF BLOOD WAS WASTED THEN SPECIMEN WAS OBTAINED AND SENT TO LAB. PORT WAS FLUSHED WITH SALINE FOLLOWED BY HEPARIN. NEEDLE WITHDRAWN. NO BLEEDING SEEN. BANDAID TO SITE. CLIENT THEN AMBULATED FROM TREATMENT AREA IN STABLE CONDITION
[2017-06-21 10:57] LABS: BASO % 0.3 % (0.0-1.0); EOS # 0.2 10*3/uL (0.0-0.4); EOS % 2.6 % (1.0-4.0); HEMATOCRIT 34.4 % (37.0-47.0); LYMPH # 0.7 10*3/uL (1.3-4.4); MEAN CELL VOLUME 86.6 fl (81.0-99.0); MEAN CORPUSCULAR HGB 27.7 pg (27.0-31.0); MEAN PLATELET VOLUME 9.7 fl (9.6-12.3); MONO # 0.7 10*3/uL (0.1-1.0); MONO % 10.7 % (3.0-9.0); NEUT # 4.8 10*3/uL (2.3-7.9); NEUT % 74.9 % (47.0-73.0); PLATELET COUNT AUTOMATED 259 10*3/uL (130-400); RED BLOOD COUNT 3.97 10*6/uL (4.10-5.10); WHITE BLOOD COUNT 6.4 10*3/uL (4.8-10.8)
[2017-06-21 11:32] LABS: ALBUMIN 3.1 gm/dl (3.1-4.5); BUN 17 mg/dl (7-24); CHLORIDE 103 mmol/L (98-107); CREATININE 0.98 mg/dL (0.55-1.02); MAGNESIUM 1.7 mg/dL (1.5-2.1); PHOSPHOROUS 3.8 mg/dL (2.5-4.9); POTASSIUM 4.6 mmol/L (3.5-5.1); SGOT/AST 11 IU/L (3-35); SGPT/ALT 11 U/L (12-78); SODIUM 138 mmol/L (136-145); TOTAL PROTEIN 6.9 gm/dL (6.4-8.2)
[2017-06-21 11:33] LABS: ALKALINE PHOSPHATASE 89 U/L (45-117)
== END | disposition home or self-care (01) ==
LOC: MEDIPORT 02:30 → EDSTATUS 11:00 → MEDIPORT 11:00 → SDC 11:00
PROVIDERS: Internal Medicine Hematology & Oncology
DX: Z45.2 Encounter for adjustment and management of vascular access device (principal); C67.9 Malignant neoplasm of bladder, unspecified; Z79.899 Other long term (current) drug therapy

== ENCOUNTER → 2017-06-28 | Outpatient (CLI) | payer MEDICARE ==
--- NOTE | 2017-06-28 10:53 | NUR ---
CLIENT AMBULATORY TO TREATMENT AREA FOR BLOOD DRAW VIA PORT THEN PORT FLUSH. PORT WAS PREPPED X 2 AND ACCESSED USING ASEPTIC TECHNIQUE. MODERATE BLOOD RETURN WAS NOTED. APPROPRIATE AMOUNT OF BLOOD WAS WASTED THEN SPECIMEN OBTAINED AND SENT TO LAB. PORT WAS FLUSHED WITH SALINE FOLLOWED BY HEPARIN. NEEDLE WAS WITHDRAWN. BANDAID TO SITE. NO BLEEDING WAS SEEN. CLIENT THEN AMBULATED FROM TREATMENT AREA IN STABLE CONDITION
[2017-06-28 11:02] LABS: BASO % 0.3 % (0.0-1.0); EOS # 0.1 10*3/uL (0.0-0.4); EOS % 2.1 % (1.0-4.0); HEMATOCRIT 34.3 % (37.0-47.0); HEMOGLOBIN 11.1 g/dl (12.0-16.0); LYMPH # 0.6 10*3/uL (1.3-4.4); LYMPH % 9.5 % (27.0-41.0); MEAN CORPUSCULAR HGB 27.8 pg (27.0-31.0); MEAN CORPUSCULAR HGB CONC 32.4 g/dl (33.0-37.0); MEAN PLATELET VOLUME 9.8 fl (9.6-12.3); MONO # 0.7 10*3/uL (0.1-1.0); MONO % 10.5 % (3.0-9.0); NEUT # 5.2 10*3/uL (2.3-7.9); PLATELET COUNT AUTOMATED 241 10*3/uL (130-400); RED BLOOD COUNT 3.99 10*6/uL (4.10-5.10); RED CELL DISTRI WIDTH 13.8 % (0-14.5); WHITE BLOOD COUNT 6.7 10*3/uL (4.8-10.8)
[2017-06-28 11:39] LABS: CREATININE 1.07 mg/dL (0.55-1.02); FREE T4 1.15 ng/dl (0.76-1.46); MAGNESIUM 1.8 mg/dL (1.5-2.1); PHOSPHOROUS 3.8 mg/dL (2.5-4.9); POTASSIUM 4.1 mmol/L (3.5-5.1)
[2017-06-28 11:43] LABS: THYROID STIM HORMONE (HS) 2.1 uIU/ml (0.358-4.75)
== END | disposition home or self-care (01) ==
LOC: MEDIPORT 01:27 → SDC 11:00 → MEDIPORT 11:00 → EDSTATUS 11:00
PROVIDERS: Internal Medicine Hematology & Oncology
DX: Z45.2 Encounter for adjustment and management of vascular access device (principal); C67.9 Malignant neoplasm of bladder, unspecified; Z79.899 Other long term (current) drug therapy

== ENCOUNTER → 2017-07-05 | Outpatient (CLI) | payer MEDICARE | END | disposition home or self-care (01) | LOC: MEDIPORT 02:21 → EDSTATUS 11:00 → SDC 11:00 → MEDIPORT 11:00 | DX: Z53.9 Procedure and treatment not carried out, unspecified reason (principal) ==

== ENCOUNTER → 2017-07-19 | Outpatient (CLI) | payer MEDICARE ==
--- NOTE | 2017-07-19 10:56 | NUR ---
[facility] CLEANS[facility] WITH CHLORAPREP. 10CC OF BLOOD WITHDRAWN AND DISCARDED. TUBES SUPPLIED BY LAB FILLED AND SENT TO LAB VIA TUBE TRANSPORT SYSTEM. PORT FLUSHED PER POLICY AND NON-CORING NEEDLE WITHDRAWN INTACT. BANDAID APPLIED TO SITE.
[2017-07-19 11:08] LABS: BASO % 0.3 % (0.0-1.0); EOS # 0.2 10*3/uL (0.0-0.4); EOS % 3.2 % (1.0-4.0); HEMOGLOBIN 11.3 g/dl (12.0-16.0); LYMPH # 0.7 10*3/uL (1.3-4.4); LYMPH % 11.6 % (27.0-41.0); MEAN CORPUSCULAR HGB 27.4 pg (27.0-31.0); MEAN CORPUSCULAR HGB CONC 32.3 g/dl (33.0-37.0); MEAN PLATELET VOLUME 9.8 fl (9.6-12.3); MONO # 0.6 10*3/uL (0.1-1.0); MONO % 10.3 % (3.0-9.0); NEUT # 4.4 10*3/uL (2.3-7.9); NEUT % 74.1 % (47.0-73.0); PLATELET COUNT AUTOMATED 294 10*3/uL (130-400); RED BLOOD COUNT 4.12 10*6/uL (4.10-5.10); RED CELL DISTRI WIDTH 13.5 % (0-14.5); WHITE BLOOD COUNT 5.9 10*3/uL (4.8-10.8)
[2017-07-19 11:38] LABS: ALBUMIN 3.1 gm/dl (3.1-4.5); ALKALINE PHOSPHATASE 107 U/L (45-117); BUN 19 mg/dl (7-24); CHLORIDE 102 mmol/L (98-107); CREATININE 1.04 mg/dL (0.55-1.02); PHOSPHOROUS 3.4 mg/dL (2.5-4.9); POTASSIUM 4.5 mmol/L (3.5-5.1); SGOT/AST 9 IU/L (3-35); SGPT/ALT 12 U/L (12-78); SODIUM 137 mmol/L (136-145); TOTAL PROTEIN 7.2 gm/dL (6.4-8.2)
== END | disposition home or self-care (01) ==
LOC: SDC 07-12 11:00 → MEDIPORT 10:33 → EDSTATUS 11:00 → SDC 11:00
PROVIDERS: Internal Medicine Hematology & Oncology
DX: C67.9 Malignant neoplasm of bladder, unspecified (principal); Z79.899 Other long term (current) drug therapy

== ENCOUNTER → 2017-07-29 | Outpatient (CLI) | payer MEDICARE | LOC: LAB 10:06 | DX: E11.9 Type 2 diabetes mellitus without complications (principal) ==

== ENCOUNTER → 2017-12-16 | Outpatient (CLI) | payer MEDICARE | END | disposition home or self-care (01) | LOC: LAB 10:20 | DX: R19.7 Diarrhea, unspecified (principal); R82.99 Other abnormal findings in urine ==

== ENCOUNTER → 2018-09-29 | Outpatient (CLI) | payer MEDICARE ==
--- NOTE | 2018-09-29 11:39 | NUR ---
CLIENT TO TREATMENT AREA VIA WHEELCHAIR FOR BLOOD DRAW VIA PORT. PORT WAS PREPPED X 2 AND ACCESSED USING ASEPTIC TECHNIQUE. BRISK BLOOD RETURN WAS NOTED. 10ML BLOOD WAS WASTED THEN SPECIMEN WAS OBTAINED AND SENT TO LAB. PORT WAS THEN FLUSHED WITH SALINE FOLLOWED BY HEPARIN. NEEDLE WAS WITHDRAWN AND A BANDAID APPLIED TO SITE. NO BLEEDING WAS SEEN. CLIENT THEN LEFT TREATMENT AREA IN STABLE CONDITION, ASSISTED BY HER
== END | disposition home or self-care (01) ==
LOC: LAB 10:32
DX: C67.8 Malignant neoplasm of overlapping sites of bladder (principal); C77.5 Secondary and unspecified malignant neoplasm of intrapelvic lymph nodes; R53.82 Chronic fatigue, unspecified; Z51.89 Encounter for other specified aftercare

== ENCOUNTER → 2018-12-11 | Outpatient (CLI) | payer MEDICARE ==
[2018-12-11 12:01] LABS: BASO # 0.1 10*3/uL (0.0-0.1); BASO % 0.6 % (0.0-1.0); EOS # 0.2 10*3/uL (0.0-0.4); EOS % 2.4 % (1.0-4.0); HEMATOCRIT 38.8 % (37.0-47.0); HEMOGLOBIN 12.3 g/dl (12.0-16.0); LYMPH # 0.9 10*3/uL (1.3-4.4); LYMPH % 11.9 % (27.0-41.0); MEAN CELL VOLUME 92.2 fl (81.0-99.0); MEAN CORPUSCULAR HGB 29.2 pg (27.0-31.0); MEAN CORPUSCULAR HGB CONC 31.7 g/dl (33.0-37.0); MEAN PLATELET VOLUME 9.6 fl (9.6-12.3); MONO # 0.8 10*3/uL (0.1-1.0); MONO % 10.5 % (3.0-9.0); NEUT # 5.8 10*3/uL (2.3-7.9); NEUT % 74.2 % (47.0-73.0); PLATELET COUNT AUTOMATED 278 10*3/uL (130-400); RED BLOOD COUNT 4.21 10*6/uL (4.10-5.10); RED CELL DISTRI WIDTH 14.5 % (0-14.5); WHITE BLOOD COUNT 7.8 10*3/uL (4.8-10.8)
[2018-12-11 12:26] LABS: ALBUMIN 3.1 gm/dl (3.1-4.5); CREATININE 1.86 mg/dL (0.55-1.02); PHOSPHOROUS 3.6 mg/dL (2.5-4.9); POTASSIUM 4.3 mmol/L (3.5-5.1); TOTAL PROTEIN 8.2 gm/dL (6.4-8.2); URIC ACID 5.3 mg/dL (2.6-6.0)
[2018-12-11 12:58] LABS: BILIRUBIN NEGATIVE (NEGATIVE); BLOOD 2+ (NEGATIVE); CLARITY CLOUDY (CLEAR); COLOR YELLOW (YELLOW); GLUCOSE NEGATIVE (NEGATIVE); KETONE NEGATIVE (NEGATIVE); LEUKO ESTERASE 2+ (NEGATIVE); NITRITE POSITIVE (NEGATIVE); SPECIFIC GRAVITY 1.015 (1.005-1.030); UROBILINOGEN 0.2 E.U./dl (0.2-1.0)
[2018-12-11 13:45] LABS: BACTERIA 3+; EPITHELIAL CELLS 0-2; WBC TNTC wbc/hpf (0-5)
== END | disposition home or self-care (01) ==
LOC: LAB 07:07
PROVIDERS: Internal Medicine Nephrology
DX: N39.0 Urinary tract infection, site not specified (principal)

== ENCOUNTER → 2020-03-13 | Outpatient (CLI) | payer MEDICARE ==
--- NOTE | 2020-03-13 12:15 | NUR ---
PT HERE FOR LAB DRAW FROM [facility]. [facility] MEDIPORT ACCESSED WITH NONCORING NEEDLE WITHOUT DIFFUCULTY. PROMPT BLOOD RETURN NOTED. BLOOD WITH ORDER SENT TO LAB. HEPARIN FLUSH PER P&P. NEEDLE REMOVED. DRESSING APPLIED. MICH GUERRERO RN
== END | disposition home or self-care (01) ==
LOC: LAB 11:51
DX: Z45.2 Encounter for adjustment and management of vascular access device (principal); R60.1 Generalized edema; E11.22 Type 2 diabetes mellitus with diabetic chronic kidney disease; N18.5 Chronic kidney disease, stage 5; R80.9 Proteinuria, unspecified; E11.29 Type 2 diabetes mellitus with other diabetic kidney complication; E87.1 Hypo-osmolality and hyponatremia; Z79.899 Other long term (current) drug therapy